=== PATIENT | female | born 1940 | race Caucasian/White ===

== ENCOUNTER 2017-03-09 23:42 | Emergency (ER) | payer MEDICARE, OTHER ==
[2017-03-10] MEDS ORDERED: NORMAL SALINE 1000 ML 1,000 ML IV ONE (02:16)
[2017-03-10] MEDS ORDERED: ONDANSETRON HCL INJ/PF 4 MG/2 ML SDV IV ONE (02:16)
[2017-03-10 03:00] LABS: ABSOLUTE LYMPHOCYTES (AUTO) 0.8 10^3/uL (0.5-4.7); ABSOLUTE MONOCYTES (AUTO) 0.3 10^3/uL (0.1-1.4); ABSOLUTE NEUT (AUTO) 5.5 10^3/uL (1.7-8.2); BASOPHILS % (AUTO) 0.4 % (0-2); HEMATOCRIT 37.5 % (36.0-47.0); HEMOGLOBIN 12.7 g/dL (12.0-15.5); LYMPHOCYTES % (AUTO) 11.5 % (13-45); MEAN CORPUSCULAR HEMOGLOBIN 31.3 pg (27.0-33.4); MEAN CORPUSCULAR VOLUME 92 fl (80-97); MONOCYTES % (AUTO) 5.3 % (3-13); PLATELET COUNT 301 10^3/uL (150-450); RED BLOOD COUNT 4.07 10^6/uL (3.72-5.28); RED CELL DISTRIBUTION WIDTH 13.2 % (11.5-14.0); SEGMENTED NEUTROPHILS % (AUTO) 82.8 % (42-78); TOTAL CELLS COUNTED % (AUTO) 100 %; WHITE BLOOD COUNT 6.6 10^3/uL (4.0-10.5)
[2017-03-10 03:18] LABS: ALANINE AMINOTRANSFERASE 30 U/L (9-52); ALBUMIN 4.2 g/dL (3.5-5.0); ALKALINE PHOSPHATASE 113 U/L (38-126); ANION GAP 9 (5-19); ASPARTATE AMINO TRANSFERASE 30 U/L (14-36); BILIRUBIN,DIRECT 0.2 mg/dL (0.0-0.4); BILIRUBIN,TOTAL 0.4 mg/dL (0.2-1.3); BLOOD UREA NITROGEN 13 mg/dL (7-20); CALCIUM 9.7 mg/dL (8.4-10.2); CARBON DIOXIDE 27 mmol/L (22-30); CHLORIDE 90 mmol/L (98-107); GLUCOSE 118 mg/dL (75-110); LIPASE 83.2 U/L (23-300); POTASSIUM 4.6 mmol/L (3.6-5.0); SODIUM 125.5 mmol/L (137-145); TOTAL PROTEIN 7.3 g/dL (6.3-8.2)
--- NOTE | 2017-03-10 04:33 | ER Document Report ---
ED General - General Chief Complaint: Vomiting Stated Complaint: COLD SYMPTOMS HEART RACING Time Seen by Provider: 03/10/17 01:56 TRAVEL OUTSIDE OF THE [place] IN LAST 30 DAYS: No - HPI Patient complains to provider of: Nausea vomiting Notes: Patient coming in for nausea vomiting started earlier this evening. Patient denies any pain resting comfortably upon my evaluation. Denies any recent antibiotics. Patient states she is vomited approximately 2-3 times. Patient also states she did have episode where she felt her heart was racing. Currently this time patient in sinus rhythm on monitor. Patient denies any pain denies fevers chills - Related Data Allergies/Adverse Reactions: amoxicillin Allergy (Verified 03/09/17 23:51) Past Medical History - Social History Smoking Status: Never Smoker Chew tobacco use (# tins/day): No Frequency of alcohol use: None Drug Abuse: None Family History: Reviewed & Not Pertinent Patient has suicidal ideation: No Patient has homicidal ideation: No - Past Medical History Cardiac Medical History: Reports: Hx Hypertension Renal/ Medical History: Denies: Hx Peritoneal Dialysis Review of Systems - Review of Systems Constitutional: No symptoms reported EENT: No symptoms reported Cardiovascular: No symptoms reported Respiratory: No symptoms reported Gastrointestinal: Nausea, Vomiting Genitourinary: No symptoms reported Female Genitourinary: No symptoms reported Musculoskeletal: No symptoms reported Skin: No symptoms reported Hematologic/Lymphatic: No symptoms reported Neurological/Psychological: No symptoms reported -: Yes All other systems reviewed and negative Physical Exam - Vital signs Vitals: Temp Pulse BP Pulse Ox 97.8 F 76 158/65 H 99 03/10/17 00:52 03/10/17 00:52 03/10/17 00:52 03/10/17 00:52 Interpretation: Normal - General General appearance: Appears well, Alert - HEENT Head: Normocephalic, Atraumatic Eyes: Normal Pupils: PERRL - Respiratory Respiratory status: No respiratory distress Chest status: Nontender Breath sounds: Normal Chest palpation: Normal - Cardiovascular Rhythm: Regular Heart sounds: Normal auscultation Murmur: No - Abdominal Inspection: Normal Distension: No distension Bowel sounds: Normal Tenderness: Nontender Organomegaly: No organomegaly - Back Back: Normal, Nontender - Extremities General upper extremity: Normal inspection, Nontender, Normal color, Normal ROM , Normal temperature General lower extremity: Normal inspection, Nontender, Normal color, Normal ROM , Normal temperature, Normal weight bearing. No: Abilio's sign - Neurological Neuro grossly intact: Yes Cognition: Normal Orientation: AAOx4 [place] Coma Scale Eye Opening: Spontaneous [place] Coma Scale Verbal: Oriented [place] Coma Scale Motor: Obeys Commands [place] Coma Scale Total: 15 Speech: Normal Motor strength normal: LUE, RUE, LLE, RLE Sensory: Normal - Psychological Associated symptoms: Normal affect, Normal mood - Skin Skin Temperature: Warm Skin Moisture: Dry Skin Color: Normal Course - Re-evaluation Re-evalutation: 03/10/17 23:59 The patient presents with nausea vomiting without signs of peritonitis or other life-threatening or serious etiology. The patient appears stable for discharge and has been instructed to return immediately if the symptoms worsen in any way , or in 8-12hr if not improved for re-evaluation. The patient has been instructed to return if the symptoms worsen or change in any way. - Vital Signs Vital signs: Temp Pulse Resp BP Pulse Ox 97.8 F 76 14 129/63 H 98 03/10/17 00:52 03/10/17 00:52 03/10/17 04:32 03/10/17 04:32 03/10/17 04:32 - Laboratory Result Diagrams: 03/10/17 02:43 03/10/17 02:43 Laboratory results interpreted by me: 03/10/17 03/10/17 02:43 02:43 Seg Neutrophils % 82.8 H Lymphocytes % 11.5 L Sodium 125.5 L Chloride 90 L Glucose 118 H Discharge - Discharge Clinical Impression: Nausea vomiting and diarrhea, Dehydration Condition: Good Disposition: HOME, SELF-CARE Instructions: Dehydration ([facility]), Gastroenteritis (adult) ([facility]) Additional Instructions: Laboratory studies consistent with dehydration. Please make sure you are drinking plenty of water or Gatorade or fluids containing lites her lites. Take medication as prescribed. Return to ER symptoms worsen. Prescriptions: Ondansetron [Zofran Odt] 4 mg PO Q6 PRN #30 tab.rapdis PRN Reason: For Nausea/Vomiting Promethazine HCl [Phenergan 25 mg Tablet] 1 - 2 tab PO Q6H PRN #15 tablet PRN Reason: Referrals: RACHEL GUPTA, [facility] [employer] [Primary Care Provider] - Follow up as needed
[2017-03-10 04:41] VITALS: BP 129/63
== END 2017-03-10 04:41 | disposition home or self-care (01) ==
LOC: ER 23:42
DX: E86.0 Dehydration (principal); R11.2 Nausea with vomiting, unspecified; R19.7 Diarrhea, unspecified
CPT/HCPCS: 99283; 96361; 96374; 36415; 83690; 85025; 80053; J2405; J7030

== ENCOUNTER 2017-10-02 15:50 | Emergency (ER) | payer MEDICARE, OTHER ==
[2017-10-02] MEDS ORDERED: LIDOCAINE 1%/EPINEPHRINE INJ 20 ML VIAL INJ ONE (16:22)
--- NOTE | 2017-10-02 16:54 | RADIOLOGY REPORT (SQ) ---
EXAM DESCRIPTION: WRIST RIGHT 3 VIEWS COMPLETED DATE/TIME: 10/02/2017 4:45 pm REASON FOR STUDY: Fell and injured right forearm, mostly distal 2/3 COMPARISON: None. NUMBER OF VIEWS: Three views right wrist. LIMITATIONS: None. FINDINGS: Osteopenic. Normal carpal alignment. No fracture or bone lesion. Distal radius and ulna intact. OTHER: No other significant finding. IMPRESSION: No evidence of wrist malalignment, fracture or bone lesion. TECHNICAL DOCUMENTATION: JOB ID: [id number] Reading location - IP/workstation name: [email or web address]
--- NOTE | 2017-10-02 17:51 | RADIOLOGY REPORT (SQ) ---
EXAM DESCRIPTION: KNEE RIGHT 4 VIEWS COMPLETED DATE/TIME: 10/02/2017 5:43 pm REASON FOR STUDY: fell on knee, ?patella injury COMPARISON: None. NUMBER OF VIEWS: Four views right knee. LIMITATIONS: None. FINDINGS: Osteopenic. Mild prepatellar soft tissue swelling. No effusion or fracture. Joint space s are relatively well maintained. No significant osteophytes. No bone lesion. OTHER: No other significant finding. IMPRESSION: Osteopenic. Prepatellar soft tissue swelling without fracture appreciated. TECHNICAL DOCUMENTATION: JOB ID: [id number] Reading location - IP/workstation name: [email or web address]
--- NOTE | 2017-10-02 18:22 | ER Document Report ---
ED Fall - General Chief Complaint: Fall Injury Stated Complaint: FALL Time Seen by Provider: 10/02/17 16:21 Notes: Patient fell this afternoon after tripping over cemented block in the end of a parking space. She did not faint or pass out. She did not have any loss of consciousness from her fall or injury. She hit the right eyebrow region causing a laceration. She hit her right forearm, mostly distally, to include the ulnar aspect of the right hand and some superficial abrasions of the forearm , and of the dorsal aspect of the proximal webspace for the index, middle, and ring fingers of the right hand. She also hit the lower right leg, in the region of the patella and distal to it which is very painful to touch or move. It has been swollen and bruised in appearance. Patient denies any head injury except for the area that she hit of the right eyebrow. Denies any neck pain. Denies any rib pain or chest pain. Denies any shortness of breath. Denies any abdominal pains. Denies any back pain. TRAVEL OUTSIDE OF THE [place] IN LAST 30 DAYS: No - Related data Allergies/Adverse Reactions: amoxicillin Allergy (Verified 03/09/17 23:51) Past Medical History - Social History Smoking Status: Never Smoker Frequency of alcohol use: None Drug Abuse: None Family History: Reviewed & Not Pertinent Patient has suicidal ideation: No Patient has homicidal ideation: No - Past Medical History Cardiac Medical History: Reports: Hx Hypertension Past Surgical History: Reports: Hx Breast Surgery - implant surgery x 2, Hx Mastectomy - double masectomy in 82 Review of Systems - Review of Systems Notes: REVIEW OF SYSTEMS: CONSTITUTIONAL : Denies fever. EENT: Denies eye, ear, nose or mouth or throat pain or other symptoms. Abrasion and questionable cut of the lateral aspect of the right eyebrow CARDIOVASCULAR: Denies chest pain. RESPIRATORY: Denies cough, chest congestion, or shortness of breath. Denies any chest or rib pains or tenderness. GASTROINTESTINAL: Denies abdominal pain or nausea, vomiting, or diarrhea. GENITOURINARY: Denies difficulty or painful urinating, urinary frequency, blood in urine. MUSCULOSKELETAL: Denies back or neck pain. Denies joint pain or swelling. Pain and swelling of the right lower leg starting at the patella and going to just below the knee. SKIN: Denies rash or skin lesions. Multiple abrasions of the right forearm, dorsal right hand, right eyebrow region NEUROLOGICAL: Denies LOC or altered mental status. Denies headache. Denies sensory loss or motor deficits. ALL OTHER SYSTEMS REVIEWED AND NEGATIVE. Physical Exam - Vital signs Vitals: Temp Pulse Resp BP Pulse Ox 97.7 F 73 18 157/73 H 100 10/02/17 15:55 10/02/17 15:55 10/02/17 15:55 10/02/17 15:55 10/02/17 15:55 Interpretation: Normal - Notes Notes: PHYSICAL EXAMINATION: GENERAL: Well-appearing, in no acute distress. Vital signs are all essentially normal. HEAD: Abrasion of the lateral aspect of the right eyebrow with a small, 1 cm laceration in the middle of that portion of the brow. EYES: Pupils equal round and reactive to light, extraocular movements intact. ENT: oropharynx clear without exudates. Moist mucous membranes. NECK: Normal range of motion, supple. No pain or tenderness anywhere in the neck region. LUNGS: Breath sounds clear and equal bilaterally. No rib tenderness. HEART: Regular rate and rhythm without murmurs. ABDOMEN: Soft, nontender. No guarding or rebound. No masses. BACK: No tenderness throughout entire back. EXTREMITIES: NEUROLOGICAL: Normal speech, normal gait. Normal sensory, motor, and reflex exams. Awake, alert, and oriented x3. Cranial nerves normal. PSYCH: Normal mood, normal affect. SKIN: Warm, dry, no rashes. Course - Vital Signs Vital signs: Temp Pulse Resp BP Pulse Ox 97.7 F 71 18 144/69 H 98 10/02/17 18:50 10/02/17 18:50 10/02/17 15:55 10/02/17 18:50 10/02/17 18:50 Procedures - Laceration/Wound Repair Right Face Wound length (cm): 1 Wound's Depth, Shape: Into muscle, Linear, Irregular Laceration pre-procedure: Sterile PPE donned Anesthetic type: 1% Lidocaine w/epi Volume Anesthetic (mLs): 4 Wound explored: Clean, No foreign body removed Irrigated w/ Saline (mLs): 100 Wound Debrided: None Wound Repaired With: Sutures Suture Size/Type: 5:0, Ethilon Number of Sutures: 2 Layer Closure?: No Post-procedure wound care: Sterile dressing applied Post-procedure NV exam normal: No Complications: No Adult Head Front/Back picture: 1 - Irregular shaped 1 cm laceration of the lateral aspect of the right eyebrow. Wound was explored. A couple small pieces of clot removed. Irrigated with saline. Closed with 5-0 nylon 2. Discharge - Discharge Clinical Impression: Fall, Laceration of face, Multiple contusions, Abrasions of multiple sites Condition: Stable Disposition: HOME, SELF-CARE Additional Instructions: HEAD INJURY PRECAUTIONS: At this point, there is no evidence that your head injury is serious. Observation is necessary, however. Take only clear liquids for the first few hours, unless told otherwise by the doctor. If no pain medication was prescribed, you may take acetaminophen according to the directions on the bottle. Do not take any medication that may alter your level of alertness (unless you've discussed it with the doctor first) . Limit activity for the first 24 hours. Bed rest is best. During the first 24 hours, check to see approximately every two to three hours that the patient is easily arousable, responds normally, and can perform common tasks such as walking without difficulty. Contact your doctor or go to the hospital if any of the following things occur: Persistent vomiting, difficulty in arousing the patient, worsening or continued headache, or failure to improve as expected. Head injuries can cause symptoms that persist for a few days or even a few weeks. CONTUSION: Your injury has resulted in a contusion -- a crushing of the deep tissues. No injury to important structures was detected during the physician's exam. Contusions vary in the amount of pain they cause, and in the length of time required for healing. Typically, the area will become bruised, and will remain painful to touch for two or three weeks. However, most patients are back to working and playing within a few days. After the initial period of rest and cold-packs, your symptoms (together with the doctor's recommendations) will determine how rapidly you can get back to full activity. Usually this means "do what feels okay, but don't do things that hurt." If re-examination was recommended, it's important to follow up as instructed. Call the doctor or return any time if pain increases, if swelling becomes severe, if you develop numbness or weakness in an injured extremity, or if any other alarming symptoms occur. ABRASIONS: An abrasion is a scraping injury of the skin. Some scarring may result. The seriousness of an abrasion is not always obvious at first. Hidden tissue damage may be present and infection may occur despite proper care. Complete healing may take from ten days to as long as a month. The healing time depends on the depth of the abrasion, and on the amount of crushing of underlying tissues from the injury. Keep the wound and dressing clean. Do not shower or bathe the area until okayed by the doctor. If the dressing gets wet, remove it and blot the wound dry, then reapply a clean dressing. Dressings should be changed every day. Sunscreen should be used for six months after the skin is healed. If any signs of infection occur (swelling, redness, increasing tenderness, red streaks, profuse purulent drainage from the abrasion, tender lumps in the armpit or groin above the abrasion, or fever), see the doctor immediately. PAIN MEDICATION INJECTION: You have received an injection of a pain medication. You should experience significant pain relief within 45 minutes. If this medication is a narcotic, it will impair your judgement, slow your reaction time and make you sleepy (as well as relieve your pain). Narcotics also can cause nausea. You should not drive, work with machinery, or perform any task requiring mental alertness until all effects of the medication are gone -- six to eight hours. Do not take any alcohol, or sedatives, and do not take any other medication without checking with your physician. USE OF TYLENOL (ACETAMINOPHEN): Acetaminophen may be taken for pain relief or fever control. It's much safer than aspirin, offering a wider range of "safe" dosages. It is safe during . Some brand names are Tylenol, Panadol, Datril, Anacin 3, Tempra, and Liquiprin. Acetaminophen can be repeated every four hours. The following are maximum recommended dosages: WEIGHT Dose Drops Elixir Chewable( 80mg) (LBS.) drprs=droppers tsp=teaspoon >89 pounds or adults 650 mg to 900 mg Acetaminophen can be repeated every four hours. Maximum dose not to exceed 4000 mg a day. These maximum recommended dosages are slightly higher than the dosages written on the product container, but these dosages are very safe and below the toxic dosage for acetaminophen. ICE PACKS to your right wrist and right knee: Apply ice packs frequently against the painful area. Many different schedules are recommended, such as "20 minutes on, 20 minutes off" or "one hour ice, two hours rest." If you need to work, you may need to go longer between ice treatments. You should plan to have the area ice packed AT LEAST one fourth of the time. The ice should be applied over the wrap, tape, or splint, or over a layer of cloth -- not directly against the skin. Some ice bags have a built-in cloth and can be put directly on the skin. LACERATION CARE: Your laceration has been sutured to keep the skin edges aligned during healing. The time of suture removal depends on the nature and location of your cut. Please follow the care instructions the doctor has outlined for you and return for further care, according to the schedule you've been given. Keep the wound and dressing clean. Unless you were told otherwise, you may shower daily, blotting the wound dry with a clean, unused towel. At other times, If the dressing gets wet or blood soaked, remove it and blot the wound dry, then reapply a new dressing. Unless you were instructed otherwise, dressings should be changed at least daily. If any signs of infection occur (swelling, redness, drainage, increasing tenderness, red streaks, tender lumps in the armpit or groin above the laceration, or fever), see the doctor immediately. SOAP CLEANSING: Gently wash the wound daily using a mild soap (like Ivory, Phisoderm, Neutrogena). Use warm water, rubbing gently until all debris, ooze, and crusting have been washed from the wound. Allow to dry briefly (about 10 minutes) after cleaning. Repeat this cleansing at least three times a day for the first two days and then once or twice a day. ANTIBIOTIC OINTMENT PROTECTION: Your wounds are such that dressing them is not practical or optional. After cleansing, you should apply a thin coating of antibiotic ointment ( Bacitracin, not Neosporin) to the wounds at least three times daily. This lessens infection risk, and may decrease the amount of scarring. Use a q-tip or dull butter knife, not your finger, to apply this ointment. Any debris or ooze which builds up in the ointment should be gently rubbed off with a sterile gauze pad. Harder crusting may need to be gently scrubbed off with a clean wash cloth with soap and warm water, perhaps applying a warm, wet wash cloth to the wound for ten minutes first. Development of redness, severe itching, or blistering may mean allergy to the ointment. See the doctor. FOLLOW-UP CARE: Your sutures should be removed in 6 - 7 days. To facilitate a timely removal of your sutures, you may return to the Emergency Department at [facility]. You do not need to call for an appointment, but the best time to come in for suture removal is early in the morning. If you have been referred to another physician for follow-up care, call that physicians office for an appointment as you were instructed. If you experience a significant change in your laceration, or if you are concerned there may be an infection (swelling, redness, drainage, increasing tenderness, red streaks, tender lumps in the armpit or groin above the laceration, or fever) , return to the Emergency Department immediately re-evaluation. Referrals: RACHEL GUPTA NP [Primary Care Provider] - Follow up as needed
[2017-10-02] MEDS ORDERED: ACETAMINOPHEN 325 MG TABLET PO ONE (18:24)
[2017-10-02 19:22] VITALS: BP 144/69
== END 2017-10-02 19:25 | disposition home or self-care (01) ==
LOC: ER 15:50
PROC: 0HQ1XZZ Repair Face Skin, External Approach (ICD-10-PCS; principal; 2017-10-02)
DX: S01.111A Laceration without foreign body of right eyelid and periocular area, initial encounter (principal); S50.811A Abrasion of right forearm, initial encounter; S60.511A Abrasion of right hand, initial encounter; S60.410A Abrasion of right index finger, initial encounter; S60.412A Abrasion of right middle finger, initial encounter; S60.414A Abrasion of right ring finger, initial encounter; M79.604 Pain in right leg; W01.198A Fall on same level from slipping, tripping and stumbling with subsequent striking against other object, initial encounter; I10 Essential (primary) hypertension
CPT/HCPCS: 12011; 99283; 73564; 73110; A9270; J3490

== ENCOUNTER 2018-03-09 23:58 | Emergency (ER) | payer MEDICARE, OTHER ==
--- NOTE | 2018-03-10 00:51 | ER Document Report ---
ED General - General Chief Complaint: Palpitations Stated Complaint: BLOOD PRESSURE PROBLEMS Time Seen by Provider: 03/10/18 00:26 Primary Care Provider: RACHEL GUPTA NP [Primary Care Provider] - Follow up in 3-5 days Notes: Patient is a 77 year old female that comes to the Emergency Department for chief complaint of symptoms of feeling like her heart is racing, feeling intermittent weakness in her legs, dry mouth, and she states that her stomach felt upset and she had 2 episodes of diarrhea. She also states she checked her blood pressure and noted it was high in the 180s. She denies dizziness, headache, chest pain, shortness of breath, fever, passing out. She states that she got up and did some exercises hoping it would make her feel better but she still was intermittently feeling palpitations and general weakness. Past medical history of hypertension on lisinopril, takes aspirin, also states that she has had a low sodium in the past and has been told that she over hydrates. She has tried to cut back. She denies medical history otherwise. Granddaughter at bedside. Patient lives at home with her who has dementia, patient states she is under a lot of stress with this. TRAVEL OUTSIDE OF THE [place] IN LAST 30 DAYS: No - Related Data Allergies/Adverse Reactions: amoxicillin Allergy (Verified 03/09/17 23:51) Past Medical History - General Information source: Patient - Social History Smoking Status: Never Smoker Frequency of alcohol use: None Drug Abuse: None Lives with: Family Family History: Reviewed & Not Pertinent - Past Medical History Cardiac Medical History: Reports: Hx Hypertension Renal/ Medical History: Denies: Hx Peritoneal Dialysis Past Surgical History: Reports: Hx Breast Surgery - implant surgery x 2, Hx Mastectomy - double masectomy in 82 - Immunizations Immunizations up to date: Yes Hx Diphtheria, Pertussis, Tetanus Vaccination: Yes Review of Systems - Review of Systems Constitutional: See HPI EENT: No symptoms reported Cardiovascular: See HPI Respiratory: No symptoms reported Gastrointestinal: No symptoms reported Genitourinary: No symptoms reported Female Genitourinary: No symptoms reported Musculoskeletal: No symptoms reported Skin: No symptoms reported Hematologic/Lymphatic: No symptoms reported Neurological/Psychological: See HPI Physical Exam - Vital signs Vitals: Temp Pulse Resp BP Pulse Ox 97.6 F 77 18 179/73 H 100 03/10/18 00:03 03/10/18 00:03 03/10/18 00:03 03/10/18 00:03 03/10/18 00:03 - Notes Notes: GENERAL: Alert, interacts well. No acute distress. Mildly anxious. HEAD: Normocephalic, atraumatic. EYES: Pupils equal, round, and reactive to light. Extraocular movements intact. ENT: Oral mucosa moist, tongue midline. Oropharynx unremarkable. Airway patent. Nares patent, no nasal septal hematoma, TM's intact. NECK: Full range of motion. Supple. Trachea midline. LUNGS: Clear to auscultation bilaterally, no wheezes, rales, or rhonchi. No respiratory distress. HEART: Regular rate and rhythm. No murmur ABDOMEN: Soft, non-tender. Non-distended. Bowel sounds present in all 4 quadrants. GENITOURINARY: Deferred EXTREMITIES: Moves all 4 extremities spontaneously. No edema, normal radial and dorsalis pedis pulses bilaterally. No cyanosis. BACK: no cervical, thoracic, lumbar midline tenderness. No saddle anesthesia, normal distal neurovascular exam. NEUROLOGICAL: Alert and oriented x3. Normal speech. [cranial nerves II through XII grossly intact]. PSYCH: Mildly anxious, talks rapidly. SKIN: Warm, dry, normal turgor. No rashes or lesions noted. Course - Re-evaluation Re-evalutation: EKG sinus rhythm, no T wave inversions or ST segment changes in consecutive leads, unremarkable OH interval and QTC. Chest x-ray unremarkable. CBC unremarkable. Chemistry shows mild hyponatremia. Otherwise unremarkable. Troponin negative. Urinalysis unremarkable. Thyroid function tests unr emarkable. Vital signs unremarkable. Patient has nonspecific symptoms. On reevaluation she states that she has had some palpitations but otherwise she feels fine. Patient states she has anxiety, she also states that she has been under a lot of stress, has been sleeping poorly. Patient also has had 2 cups of coffee and also tea. Based on her examination and workup I suspect her symptoms are partially from the caffeine, partially from lack of sleep and stress. I discussed this with patient and her granddaughter, they strongly agree with this as the reasons for her symptoms. I discussed different options. Patient has taken a benzodiazepine very briefly and very occasionally in the past to help her sleep with good success, granddaughter is requesting this for her. Patient states that she would only take it every few days and only if absolutely needed. She is not suicidal or homicidal. She states she just needs to get a better night sleep every milligram. She was provided with a small amount of Ativan, follow-up instructions, and return precautions. These were discussed in detail. Patient and granddaughter state understanding and agreement. - Vital Signs Vital signs: Temp Pulse Resp BP Pulse Ox 97.6 F 74 20 145/77 H 97 03/10/18 00:03 03/10/18 04:21 03/10/18 04:29 03/10/18 04:29 03/10/18 04:29 - Laboratory Result Diagrams: 03/10/18 01:15 03/10/18 01:15 Laboratory results interpreted by me: 03/10/18 03/10/18 01:15 01:15 Seg Neutrophils % 80.4 H Lymphocytes % 12.8 L Sodium 134.2 L Discharge - Discharge Clinical Impression: Palpitations, Leg cramps, Lightheadedness, Anxiety Condition: Stable Disposition: HOME, SELF-CARE Additional Instructions: Your workup at this time and your evaluation are reassuring without any concerning findings. I recommend that you reduce your caffeine intake, improve your sleeping duration. If needed take the medication provided to sleep, you can cut this in half if needed, do not combine with other sedating medication, alcohol, or drive while taking. Follow-up with your primary care provider for additional evaluation and man agement. Return if you worsen including vomiting, chest pain, difficulty breathing, fever, passing out, or something is not right. Prescriptions: Lorazepam [Ativan 0.5 mg Tablet] 0.5 - 1 tab PO QHS PRN #10 tab PRN Reason: Referrals: RACHEL GUPTA, ENERGY MANAGEMENT SPECIALIST [Primary Care Provider] - Follow up in 3-5 days
--- NOTE | 2018-03-10 01:23 | RADIOLOGY REPORT (SQ) ---
EXAM DESCRIPTION: XR CHEST 1 VIEW COMPLETED DATE/TME: 03/10/2018 00:37 CLINICAL HISTORY: 77 years, Female, racing heart COMPARISON: None. NUMBER OF VIEWS: 1 TECHNIQUE: Portable chest LIMITATIONS: None. FINDINGS: Heart size is normal. Surgical clips project over the left hemithorax. Mild atheromatous change thoracic aorta. Osteopenia. Lungs are clear. No pneumothorax IMPRESSION: No acute cardiopulmonary process copyright 2010 [employer]- All Rights Reserved
[2018-03-10 01:44] LABS: ABSOLUTE MONOCYTES (AUTO) 0.4 10^3/uL (0.1-1.4); ABSOLUTE NEUT (AUTO) 6.1 10^3/uL (1.7-8.2); BASOPHILS % (AUTO) 0.6 % (0-2); EOSINOPHILS % (AUTO) 0.3 % (0-6); HEMATOCRIT 37.7 % (36.0-47.0); HEMOGLOBIN 12.9 g/dL (12.0-15.5); LYMPHOCYTES % (AUTO) 12.8 % (13-45); MEAN CORPUSCULAR HGB CONC 34.2 g/dL (32.0-36.0); MEAN CORPUSCULAR VOLUME 94 fl (80-97); MONOCYTES % (AUTO) 5.9 % (3-13); PLATELET COUNT 288 10^3/uL (150-450); RED BLOOD COUNT 4.03 10^6/uL (3.72-5.28); RED CELL DISTRIBUTION WIDTH 13.8 % (11.5-14.0); SEGMENTED NEUTROPHILS % (AUTO) 80.4 % (42-78); TOTAL CELLS COUNTED % (AUTO) 100 %; WHITE BLOOD COUNT 7.6 10^3/uL (4.0-10.5)
[2018-03-10 01:46] LABS: APPEARANCE,URINE CLEAR; BILIRUBIN,URINE NEGATIVE (NEGATIVE); COLOR,URINE YELLOW; GLUCOSE, URINE NEGATIVE (NEGATIVE); KETONES,URINE NEGATIVE (NEGATIVE); LEUKOCYTE ESTERASE,URINE NEGATIVE (NEGATIVE); NITRITE,URINE NEGATIVE (NEGATIVE); PROTEIN,URINE NEGATIVE (NEGATIVE); URINE SPECIFIC GRAVITY 1.013; UROBILINOGEN,URINE NEGATIVE mg/dL (<2.0)
[2018-03-10 02:06] LABS: ALANINE AMINOTRANSFERASE 23 U/L (9-52); ALBUMIN 4.5 g/dL (3.5-5.0); ALKALINE PHOSPHATASE 105 U/L (38-126); ANION GAP 9 (5-19); ASPARTATE AMINO TRANSFERASE 27 U/L (14-36); BILIRUBIN,DIRECT 0.2 mg/dL (0.0-0.4); BILIRUBIN,TOTAL 0.3 mg/dL (0.2-1.3); BLOOD UREA NITROGEN 15 mg/dL (7-20); CALCIUM 9.3 mg/dL (8.4-10.2); CARBON DIOXIDE 27 mmol/L (22-30); CHLORIDE 98 mmol/L (98-107); GLUCOSE 110 mg/dL (75-110); POTASSIUM 4.7 mmol/L (3.6-5.0); SODIUM 134.2 mmol/L (137-145); TOTAL PROTEIN 7.2 g/dL (6.3-8.2)
[2018-03-10] MEDS ORDERED: LORAZEPAM 0.5 MG TABLET PO ONE (03:34)
[2018-03-10 04:17] LABS: FREE T4 (FREE THYROXINE) 1.08 ng/dL (0.78-2.19); THYROID STIMULATING HORMONE 3.88 uIU/mL (0.47-4.68)
[2018-03-10 04:48] VITALS: BP 145/77
--- NOTE | 2018-03-10 07:53 | EKG REPORT ---
SEVERITY:- NORMAL ECG - SINUS RHYTHM : Confirmed by: Malgorzata Becerra MD 10-Mar-2018 07:52:32
== END 2018-03-10 04:35 | disposition home or self-care (01) ==
LOC: ER 23:58
DX: R00.2 Palpitations (principal); G47.62 Sleep related leg cramps; R42 Dizziness and giddiness; F41.9 Anxiety disorder, unspecified; M62.81 Muscle weakness (generalized); R68.2 Dry mouth, unspecified; R19.7 Diarrhea, unspecified; I10 Essential (primary) hypertension
CPT/HCPCS: 93005; 99285; 36415; 84439; 83735; 84443; 85025; 80053; 81001; 84484; 71045; 93010; A9270

== ENCOUNTER → 2019-01-08 | Outpatient (CLI) | payer MEDICARE, OTHER ==
--- NOTE | 2019-01-08 23:58 | XCELERA REPORT ---
[address] [address] Transthoracic Echocardiogram Report Name: JAMAR VICKERS Age: 78 yrs Gender: Female : 1940 Patient Status: Outpatient Patient Location: [facility] Study Date: 01/08/2019 12:08 PM Height: 66 in Weight: 156 lb BSA: 1.8 m2 Procedure: A complete two-dimensional transthoracic echocardiogram was performed (2D, M-mode, spectral and color flow Doppler). The study was technically difficult with many images being suboptimal in quality. Reason For Study: EDEMA Ordering Physician: RACHEL GUPTA Performed By: Nate Amado Interpretation Summary The left ventricular ejection fraction is within normal limits. There is mild concentric left ventricular hypertrophy. The left ventricle is grossly normal size. Doppler measurements suggest impaired left ventricular relaxation, which is associated with grade I/IV or mild diastolic dysfunction Wall motion cannot be accurately commented on, but no definite regional wall motion abnormalities noted. The right ventricle is grossly normal size. The right ventricular systolic function is normal. The left atrium is mildly dilated. There is no mitral valve stenosis. There is a trace to mild amount of mitral regurgitation There is no aortic valve stenosis There is a trace amount of aortic regurgitation There is a trace or physiologic amount of tricuspid regurgitation Tricuspid regurgitation jet envelope not well defined to measure RV systolic pressure accurately. The aortic root is not well visualized but is probably normal size. The inferior vena cava appeared normal and decreased > 50% with respiration (RAP 5-10 mmHg) There is no pericardial effusion. MMode/2D Measurements & Calculations RVDd: 3.4 cm LVIDd: 5.1 cm FS: 35.4 % Ao root diam: 3.0 cm IVSd: 0.76 cm LVIDs: 3.3 cm EDV(Teich): 125.7 ml Ao root area: 7.3 cm2 LVPWd: 0.77 cm ESV(Teich): 44.6 ml EF(Teich): 64.5 % Doppler Measurements & Calculations MV E max nataly: MV dec slope: Ao V2 max: LV V1 max P.9 cm/sec 308.3 cm/sec2 109.0 cm/sec 3.7 mmHg MV A max nataly: MV dec time: 0.22 secAo max PG: LV V1 max: 65.3 cm/sec 4.7 mmHg 95.8 cm/sec MV E/A: 1.0 PA V2 max: 81.6 cm/sec PA max P.7 mmHg Left Ventricle The left ventricle is grossly normal size. There is mild concentric left ventricular hypertrophy. The left ventricular ejection fraction is within normal limits. Doppler measurements suggest impaired left ventricular relaxation, which is associated with grade I/IV or mild diastolic dysfunction. Wall motion cannot be accurately commented on, but no definite regional wall motion abnormalities noted. Right Ventricle The right ventricle is grossly normal size. The right ventricular systolic function is normal. Atria Borderline right atrial enlargement. The left atrium is mildly dilated. Interarterial septum not well visualized and not well dopplered. Cannot comment on ASD/PFO presence. Mitral Valve The mitral valve leaflets are sclerotic, but show no functional abnormalities. There is no mitral valve stenosis. There is a trace to mild amount of mitral regurgitation. Aortic Valve The aortic valve is grossly normal. There is no aortic valve stenosis. There is a trace amount of aortic regurgitation. Tricuspid Valve The tricuspid valve is not well visualized secondary to technical limitations. There is no tricuspid stenosis. There is a trace or physiologic amount of tricuspid regurgitation. Tricuspid regurgitation jet envelope not well defined to measure RV systolic pressure accurately. Pulmonic Valve The pulmonic valve is not well visualized. Great Vessels The aortic root is not well visualized but is probably normal size. The inferior vena cava appeared normal and decreased > 50% with respiration (RAP 5-10 mmHg). Effusions There is no pericardial effusion. : RACHEL GUPTA Shyamal
== END ==
LOC: SP 10:46
PROVIDERS: ATTEND Nurse Practitioner Family
DX: I10 Essential (primary) hypertension (principal); R60.9 Edema, unspecified
CPT/HCPCS: 93306

== ENCOUNTER → 2019-08-31 | Outpatient (CLI) | payer MEDICARE, OTHER ==
--- NOTE | 2019-08-31 12:49 | RADIOLOGY REPORT (SQ) ---
EXAM DESCRIPTION: WRIST RIGHT 3 VIEWS IMAGES COMPLETED DATE/TIME: 08/31/2019 12:01 pm REASON FOR STUDY: INJURY S69.91XA UNSP INJURY OF RIGHT WRIST, HAND AND FINGER(S), INI Fell last night, pain at the wrist. COMPARISON: Right wrist x-ray 10/02/2017. NUMBER OF VIEWS: Three views. TECHNIQUE: AP, lateral, and oblique radiographic images acquired of the right wrist. LIMITATIONS: None. FINDINGS: MINERALIZATION: Osteopenia. BONES: There is an acute, transverse, mildly displaced, impacted fracture at the distal radius. Ther e is a small avulsion fracture at the ulnar styloid. SOFT TISSUES: There is mild soft tissue swelling at the distal forearm and wrist. No radiopaque fore ign body. IMPRESSION: Acute, transverse, impacted fracture at the distal right radius. Small avulsion fractur e of the ulnar styloid. TECHNICAL DOCUMENTATION: JOB ID: [id number] [email or web address]- All Rights Reserved Reading location - IP/workstation name: [email or web address]
== END ==
LOC: RAD 11:44
PROVIDERS: ATTEND Nurse Practitioner Acute Care
DX: S52.501A Unspecified fracture of the lower end of right radius, initial encounter for closed fracture (principal); S52.611A Displaced fracture of right ulna styloid process, initial encounter for closed fracture; X58.XXXA Exposure to other specified factors, initial encounter